=== PATIENT | male | born 1950 | race Caucasian/White ===

== ENCOUNTER → 2020-09-28 08:28 | Outpatient (CLI) | payer MEDICARE, SELFPAY ==
--- NOTE | ~2020-09-28 | US_ITS ---
EXAMINATION: US abdomen complete DATE: 09/28/2020 08:59 INDICATION: Left upper quadrant/mid abdominal palpable mass TECHNIQUE: Multiple grayscale and Doppler ultrasound images of the abdomen were obtained. COMPARISON: None FINDINGS: No abnormal masses or fluid collections identified in the region of concern as indicated to the sonog rapher by the patient. Abdominal aorta is normal measuring 2.1 cm in diameter proximally, 2.2 cm in t he mid aorta and 2.3 cm in the distal aorta. The pancreatic head and body are normal in appearance. The pancreatic tail is not visualized. The inferior vena cava is normal. Liver has normal echogenicit y and contour, with a smooth surface. No liver lesion identified. No intrahepatic biliary duct dilati on suspected. Portal venous flow was seen in the hepatopetal, normal direction and has normal Doppler waveform. The gallbladder is normal in appearance. There is no cholelithiasis. The common bile duct measures mm, which is normal. Sonographic Weeks sign was reported as negative by the clamp operator. T here is normal renal contour and echogenicity bilaterally. The right kidney measures 10.4 x 4.6 x 5.0 cm and the left 11.4 x 5.0 x 5.3 cm. There are no focal renal lesions identified. There is no hydr onephrosis. Spleen is normal measuring 10.6 cm in maximal length. IMPRESSION: 1. Normal abdominal ultrasound. Reviewed, dictated and finalized at location A. N STRINGER
== END ==
PROVIDERS: PCP Family Medicine Adolescent Medicine; Visit Provider Family Medicine Adolescent Medicine
DX: R19.02 Left upper quadrant abdominal swelling, mass and lump (principal)
CPT/HCPCS: 76700